=== PATIENT | female | born 1965 | race Caucasian/White ===

== ENCOUNTER 2021-09-26 08:20 | Day surgery (SDC) | payer OTHER ==
[2021-09-25 09:15] VITALS: BMI 19.6
[~2021-09-26 08:20] MED LIST: LACTATED RINGERS 1,000 ML IV SCH; LIDOCAINE 1% (10MG/ML) FOR IV START INTRADERMA PRN
[2021-09-26 08:48] VITALS: TEMP 97.4
[2021-09-26] MEDS ORDERED: LIDOCAINE 2% INJ 20 MG/ML (2 ML VIAL) ONE (09:33)
[2021-09-26] MEDS ORDERED: PROPOFOL 10 MG/ML 20 ML VIAL IV ONE (09:33)
--- NOTE | 2021-09-26 10:00 | P.PCN ---
Date of Procedure: 09/26/21 Procedure(s) Performed: BRIEF HISTORY: Patient is a 55-year-old pleasant white male scheduled for an elective colonoscopy as a part of screening for colorectal neoplasia. PROCEDURE PERFORMED: Colonoscopy. PREOPERATIVE DIAGNOSIS: Screening for colon cancer. IV sedation per Anesthesia. PROCEDURE: After informed consent was obtained, the patient, was brought into the endoscopy unit. IV sedation was administered by Anesthesia under continuous monitoring. Digital rectal examination was normal. Initially the Olympus CF-160 flexible video colonoscope was then inserted in the rectum, gradually advanced into the cecum without any difficulty. Careful examination was performed as the scope was gradually being withdrawn. Ileocecal valve and the appendiceal orifice were visualized and appeared normal. Prep was excellent. Mucosa of the cecum, ascending colon, transverse colon, descending colon, sigmoid colon, and rectum appeared normal. Retroflexion was performed in the rectum and no lesions were seen. The patient tolerated the procedure well. IMPRESSION: Normal-appearing colon from rectum to cecum no evidence of colorectal neoplasia . RECOMMENDATIONS: Findings of this examination were discussed with the patient as well as a family. She was advised to have a repeat screening colonoscopy in 10 years..
[2021-09-26] MEDS ORDERED: LACTATED RINGERS 1,000 ML IV ONE (10:03)
[2021-09-26 10:16] VITALS: BP 104/70; PULSE 66; RESP 14
== END 2021-09-26 10:42 | disposition home or self-care (01) ==
LOC: ORWHC2ENDO 08:20
PROVIDERS: ATTEND Internal Medicine Gastroenterology
DX: Z12.11 Encounter for screening for malignant neoplasm of colon (principal); J30.2 Other seasonal allergic rhinitis; Z79.899 Other long term (current) drug therapy; Z98.890 Other specified postprocedural states
CPT/HCPCS: J2704; J2001; G0121

== ENCOUNTER → 2022-10-03 | Outpatient (CLI) | payer OTHER ==
--- NOTE | 2022-10-03 09:19 | MR ---
EXAMINATION TYPE: MR lumbar spine wo con DATE OF EXAM: 10/03/2022 COMPARISON: NONE HISTORY: Low back pain into rt buttocks and thigh TECHNIQUE: T1 and T2 axial and sagittal images of the lumbar spine are submitted. FINDINGS: There is no abnormal signal seen within the visualized spinal cord or paraspinal soft tissu es. 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 At L1-2 there is no evidence of degenerative disc disease, disc herniation, canal stenosis, or forami nal encroachment. There is hypertrophic change of the facets. At L2-3 there is no evidence of degenerative disc disease, disc herniation, canal stenosis, or forami nal encroachment. There is hypertrophic change of the facets At L3-4 there is no evidence of degenerative disc disease, disc herniation, canal stenosis, or forami nal encroachment. There is hypertrophic change of the facets. There is mild circumferential disc bulg ing. At L4-5 there is disc desiccation with a broad-based right paracentral disc small herniation. Hypertr ophy of the ligamentum flavum, diminutive spinal canal and facet joints contribute to canal stenosis. Neural foramina remain patent. At L5-S1 there is disc desiccation with annular tear. Broad-based left paracentral small disc protrus ion. No significant mass effect upon the thecal sac or exiting nerve roots. Mild hypertrophic change of the facets. IMPRESSION: 1. Broad-based small right paracentral subligamentous disc herniation L4-L5 with moderate compression of the thecal sac. Hypertrophic change of the facets, diminutive spinal canal and hypertrophic younger es of the ligamentum flavum result in moderate canal stenosis. 2. Annular tear L5-S1 with left paracentral disc small protrusion but no evidence of canal stenosis o r foraminal encroachment.
== END | disposition home or self-care (01) ==
LOC: RADMRIMAIN 08:33
PROVIDERS: ATTEND Physical Medicine & Rehabilitation
DX: M51.17 Intervertebral disc disorders with radiculopathy, lumbosacral region (principal); M47.26 Other spondylosis with radiculopathy, lumbar region; S32.030A Wedge compression fracture of third lumbar vertebra, initial encounter for closed fracture
CPT/HCPCS: 72148